=== PATIENT | male | born 2000 | race Native Hawaiian/Other Pacific Islander ===

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

== ENCOUNTER 2024-05-14 09:53 | Emergency (ER) | payer BC ==
[~2024-05-14] VITALS: Ht 157.5 cm; Wt 70.3 kg
[2024-05-14] MEDS ORDERED: DOXY100C5 PO (11:35)
[2024-05-14 11:41] VITALS: BP 132/74; TEMP 98.6; O2SAT 98
== END 2024-05-14 11:43 | disposition home or self-care (01) ==
LOC: ER 09:53
DX: N45.1 Epididymitis (principal); Z79.899 Other long term (current) drug therapy; Z88.7 Allergy status to serum and vaccine
CPT/HCPCS: A4606; A4663